=== PATIENT | male | born 1975 | race Hispanic/Latino ===

== ENCOUNTER 2018-05-30 20:50 | Emergency (ER) | payer BC, SELFPAY ==
[2018-05-30] MEDS ORDERED: diphenhydrAMINE 25 MG CAP ONE (21:23)
[2018-05-30] MEDS ORDERED: predniSONE 20 MG TAB ONE (21:23)
[2018-05-30] MEDS ORDERED: Famotidine 20 MG TAB ONE (21:23)
== END 2018-05-30 22:10 | disposition home or self-care (01) ==
LOC: ERS 20:50
DX: T63.441A Toxic effect of venom of bees, accidental (unintentional), initial encounter (principal); F17.210 Nicotine dependence, cigarettes, uncomplicated
CPT/HCPCS: 99282; J7506

== ENCOUNTER 2025-09-23 11:11 | Emergency (ER) | payer BC, OTHER ==
[2025-09-23] MEDS ORDERED: Ketorolac Tromethamine 30 MG (1 mL) VIAL ONE (12:06)
[2025-09-23] MEDS ORDERED: Methocarbamol 500 MG TAB ONE (12:06)
== END 2025-09-23 12:42 | disposition home or self-care (01) ==
LOC: ERS 11:11
DX: M54.50 Low back pain, unspecified (principal); F17.210 Nicotine dependence, cigarettes, uncomplicated
CPT/HCPCS: 96372; 99282; J1885